=== PATIENT | male | born 1955 | race Caucasian/White ===

== ENCOUNTER 2021-03-22 05:14 | Day surgery (SDC) | payer MEDICARE ==
[~2021-03-22] VITALS: Ht 175 cm; Wt 86.0 kg
[~2021-03-22 05:14] MED LIST: MOBIC7.5 MG PO; ZOCOR20 MG PO
--- NOTE | 2021-03-22 14:05 | NUR ---
TC TO [facility] [place] [phone] FOR PT. ROLLING WALKER. PER GENO THEY WILL DELIVER THE WALKER TO THE PT. HOME. ADVISED HER THAT PT. WILL D/C FROM FACILITY ON 03/23/2021. PT. HAS MADE HIS APPT. AT [facility] IN [place] FOR 03/24/2021.
[2021-03-23 07:10] LABS: BASOPHIL 0.1 % (0-2); EOSINOPHIL 0.2 % (0-5); HCT 35.1 % (42.0-52.0); HGB 12.3 g/dl (13.2-18.0); LYMPHOCYTE 12.9 % (15-48); MCH 32.2 pg (25.0-31.0); MCV 91.9 fL (78.0-100.0); MONOCYTE 7.4 % (0-12); MPV 10.2 fL (6.0-9.5); NEUTROPHIL 78.6 % (41-80); NRBC 0; PLT 163 K/uL (150-400); RBC 3.82 M/uL (4.70-6.00); RDW 12.3 % (11.5-14.0); WBC 14.2 K/uL (4.0-10.5)
[2021-03-23 07:33] LABS: BUN/CREAT RATIO (CALC) 15.5 RATIO; CREATININE 0.97 mg/dL (0.67-1.17); POTASSIUM 4.4 mmol/L (3.5-5.1)
[2021-03-23] MEDS ORDERED: ULTRA-LIGHT RO1 EACH XX (08:47)
[2021-03-23] MEDS ORDERED: ZOFRAN4 M1 PO (08:51)
[2021-03-23] MEDS ORDERED: FEOSOL325 MG PO (08:51)
[2021-03-23] MEDS ORDERED: OXYCODONE-ACET1 EAC1 PO (08:51)
[2021-03-23] MEDS ORDERED: XARELTO10 MG PO (08:51)
--- NOTE | 2021-03-23 10:41 | NUR ---
PT. HAS ALREADY SET UP HIS [facility]AP[facility] IT [facility] 03/24/2021 @ 2:00 P.M. [facility] W[facility] TO HIS HOME. KEVIN COOK AT [facility] IN [place] IS $45.00.
--- NOTE | 2021-03-23 15:53 | NUR ---
PT. D/C HOME THIS DATE WTIH SPOUSE. PT. HAS AN OUTPT APPT. AT [facility] FOR 03/24/2021 @ 2:00 P.M. SPOKE WITH GENO BERNAL, INSTRUCTOR ADJUNCT PHARMACY TECHNICIAN FOR [facility] IN [place]. SHE WILL HAVE A ROLLING WALKER SENT TO PT HOME BY TODAY, 03/23/2021. ADVISED PT. OF THIS INFORMATION AND GAVE HIM HER TELEPHONE NUMBER [phone]. [facility] [place]. [place] PAY FOR [facility] IS $45.00.
== END 2021-03-23 11:47 | disposition home or self-care (01) ==
LOC: FAS 05:14 → FMS 05:15 → FAS 07:00 → FMS 08:32 → FAS 08:32 → FMS 03-23 11:47
PROVIDERS: Legal Medicine
DX: M17.11 Unilateral primary osteoarthritis, right knee (principal); M21.161 Varus deformity, not elsewhere classified, right knee; E78.5 Hyperlipidemia, unspecified; R11.0 Nausea; Z79.899 Other long term (current) drug therapy
CPT/HCPCS: 36415; 73560; 80048; 85025; 86850; 86900; 86901; 94010; 94760; 94762; 97110; 97162; 97166; 97530-GP; 97535; C1713; C1776; J0171; J0697; J1100; J1885; J2250; J2270; J2405; J2704; J2795; J3010; J7120